=== PATIENT | female | born 1990 ===

== ENCOUNTER 2021-03-04 01:56 | Inpatient (IN) | payer MEDICAID ==
[2021-03-04] MEDS ORDERED: Sodium Chloride 0.9% 10 ML Syringe FLUSH PRN (04:03)
[2021-03-04] MEDS ORDERED: Nalbuphine 10 MG/1 ML Vial IVPUSH PRN (04:03)
[2021-03-04] MEDS ORDERED: Acetaminophen 325 MG Tab PO PRN ×2 (04:14→09:46)
[2021-03-04] MEDS ORDERED: Ondansetron 4 MG/2 ML SDV IVPUSH PRN (04:14)
[2021-03-04] MEDS ORDERED: Lidocaine 1% 50 ML MDV INJECT ONE (04:14)
[2021-03-04] MEDS ORDERED: Calcium Carbonate 500 MG Tab.Chew PO PRN (04:14)
[2021-03-04] MEDS ORDERED: Oxytocin/Lactated Ringers 10 UNIT/1,000 ML BAG IV SCH ×3 (04:15→09:46)
[2021-03-04] MEDS ORDERED: Lactated Ringers 1,000 ML IV SCH (04:15)
[2021-03-04] MEDS ORDERED: Ampicillin 2 GM in Sodium Chloride 0.9% 100 ML IV ONE (04:30)
[2021-03-04] MEDS ORDERED: Ampicillin 2 GM AdvVial IV ONE (04:46)
--- NOTE | 2021-03-04 08:05 | PCM.LDHP ---
L&D History of Present Illness - General Date of Service: 03/04/21 Admit Problem/Dx: Patient Status Order with Admit Dx/Problem 03/04/21 02:05 Patient Status [ADT] Routine 03/04/21 04:09 Patient Status [ADT] Routine Admission Diagnosis/Problem Admission Diagnosis/Problem Vaginal delivery Source of Information: Patient History Limitations: Reports: No Limitations - History of Present Illness Introduction:: Jenna Ching is a 30-year-old G2 now P2-0-0-2 who presented overnight with spontaneous onset of labor. She was having contractions that were about every 5 to 7 minutes and were getting more painful and closer together. She did not have any leaking of fluid or vaginal bleeding. She was having good movement. Timing/Duration: Reports: intermittent (Contractions every 5 to 7 minutes on initial presentation with contractions getting closer and closer together to every 2 minutes), getting worse (For her contraction pain) Quality: Reports: Pressure, Throbbing Severity: Severe Improves with: Reports: None Worsens with: Reports: None Associated Symptoms: Denies: vaginal bleeding, vaginal discharge, vaginal fluid Present Illness Comments:: Jenna Ching is a 30-year-old G2 now P2-0-0-2 female status post normal spontaneous vaginal delivery who had initially presented in active labor. She had intermittent care with 1 visit with myself on 02/26/2021. She had additional care with Dr. Moore at [facility]. Her was overall uncomplicated. She was diagnosed with chlamydia in early in August 2020 with treatment and negative testing on 11/29/2020. She was rubella immune. Her anatomy ultrasound was normal and did not show any abnormalities. Her GBS swab at the end of was positive and she should be treated with antibiotics in labor. Patient did receive 1 dose of antibiotics prior to delivery. Her anatomy ultrasound was normal and did not show any significant abnormalities. There was no evidence of cleft lip on the anatomy ultrasound. Her is complicated by: * GBS positive and was on ampicillin for prophylaxis. Received 1 dose prior to delivery * Rubella nonimmune and should be offered MMR vaccine after delivery * History of first child affected by soft cleft palate. Recommend for evaluation after delivery of the . * History of chlamydia during this with positive swab on 08/30/2020 and was treated at that time. She had negative test of cure on 11/29/2020. 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 G1: 05/20/2013, 39 weeks, , male , 7 pounds 9 ounces, no complications G2: 03/04/2021, 39 weeks 2 days, , male infant, 3750 g (8 pounds 4.3 ounces), moderate to thick meconium and amniotic fluid labs Blood type: O+ Antibody screen: Negative First trimester hematocrit/hemoglobin: 41.5%/12.9 on 08/30/2020 Platelets: 328 on 08/30/2020 Urine culture: Mixed jemma suggestive of contamination Rubella status: Nonimmune Hepatitis B surface antigen: Negative RPR: Negative Hepatitis C: Negative HIV: Negative Gonorrhea: Negative on 08/30/2020 Chlamydia: Positive on 08/30/2020 Anatomy ultrasound: Normal anatomy, no abnormalities, posterior placenta, no previa, 48th percentile on 10/25/2020 Gonorrhea: Negative on 11/29/2020 Chlamydia: Negative on 11/29/2020 3 hour glucose tolerance test: Fasting 105, 1 hour 161, 2-hour 154, 3-hour 57 Second trimester hemoglobin: 12.9 on 12/27/2020 GBS status: Positive on swab on 02/26/2021 - Related Data Allergies/Adverse Reactions: Allergies Allergy/AdvReac Type Severity Reaction Status Date / Time amoxicillin Allergy Cannot Verified 03/04/21 04:37 Remember Home Medications: Home Meds Vits #93/Iron Fum/FA [ Formula Tablet] 1 tab PO DAILY 03/04/21 [History] Past Medical History - Past Health History Medical/Surgical History: Denies Medical/Surgical History 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: : 2 Para: 2 Social & Family History - Family History Family Medical History: No Pertinent Family History - Tobacco Use Tobacco Use Status *Q: Never Tobacco User Second Hand Smoke Exposure: No - Tobacco Core Measures Tobacco Use/Smoking Within Last 30 Days: No Smokeless Tobacco Use in Last 30 Days: No - Alcohol Use Alcohol Use History: No - Recreational Drug Use Recreational Drug Use: No - Living Situation & Occupation Living situation: Reports: Single, with Significant Other, with Family Occupation: Employed H&P Review of Systems - Review of Systems: Review Of Systems: See Below General: Denies: Fever, Chills, Malaise, Weakness, Fatigue HEENT: Denies: Headaches, Post Nasal Drip, Sinus Congestion, Sore Throat, Visual Changes Pulmonary: Denies: Shortness of Breath, Wheezing, Pleuritic Chest Pain, Cough Cardiovascular: Denies: Chest Pain, Palpitations, Dyspnea on Exertion, Orthopnea Gastrointestinal: Denies: Abdominal Pain, Constipation, Diarrhea, Nausea, Vomiting Genitourinary: Denies: Dysuria, Frequency, Burning, Pain, Urgency Musculoskeletal: Reports: Back Pain (and hip pain of ) Skin: Denies: Rash, Lesions Psychiatric: Denies: Depression, Anxiety L&D Exam - Exam Exam: See Below - Vital Signs Vital Signs: Last Vital Signs Temp 36.7 C 03/04/21 02:27 Pulse 102 H 03/04/21 02:27 Resp 15 03/04/21 02:27 BP 122/70 03/04/21 02:27 Pulse Ox 98 03/04/21 02:27 Weight: 125.101 kg - OB Specific Contraction Duration (sec): 60-75 Contraction Frequency (min): 2-4 Contraction Intensity: Strong Movement: Active Heart Tones: Present Heart Tones per Min: 155 (+15 x 15 accelerations, no decelerations prior to delivery) Heart Rate (FHR) Variability: Moderate (6-25 bmp) Presentation: Right Occiput Anterior (PATEL) - Corral Score Corral Score Cervix Position: Anterior Corral Score Consistency: Soft Corral Score Effacement: >80% (100%) Corral Score Dilation: > 5 cm (10 cm) Corral Score Infant's Station: +1, +2 (+1) Corral Score Total: 13 - Exam General: Alert, Oriented, Moderate Distress (with contractions) HEENT: Conjunctiva Clear, EOMI Neck: Supple, Trachea Midline Lungs: Normal Respiratory Effort Cardiovascular: Regular Rate GI/Abdominal Exam: Soft, Non-Tender, No Distention, Other (Gravid). No: Guarding, Rigid, Rebound Genitourinary: Normal external exam Extremities: Normal Inspection, No Pedal Edema Skin: Warm, Dry, Intact Psychiatric: Alert, Normal Affect, Normal Mood - Patient Data Lab Results Last 24 hrs: Laboratory Results - last 24 hr 03/04/21 03/04/21 03/04/21 Range/Units 04:30 04:30 04:30 WBC (3.98-10.04) K/mm3 RBC (3.98-5.22) M/mm3 Hgb (11.2-15.7) gm/dl Hct (34.1-44.9) % MCV (79.4-94.8) fl MCH (25.6-32.2) pg MCHC (32.2-35.5) g/dl RDW Std Deviation (36.4-46.3) fL Plt Count (182-369) K/mm3 MPV (9.4-12.3) fl Neut % (Auto) (34.0-71.1) % Lymph % (Auto) (19.3-51.7) % [place] % (Auto) (4.7-12.5) % Eos % (Auto) (0.7-5.8) Baso % (Auto) (0.1-1.2) % Neut # (Auto) (1.56-6.13) K/mm3 Lymph # (Auto) (1.18-3.74) K/mm3 [place]son # (Auto) (0.24-0.36) K/mm3 Eos # (Auto) (0.04-0.36) K/mm3 Baso # (Auto) (0.01-0.08) K/mm3 Urine Color Yellow (Yellow) Urine Appearance Clear (Clear) Urine pH 6.0 (5.0-8.0) Ur Specific [place] > or = 1.030 (1.005-1.030) Urine Protein 1+ H (Negative) Urine Glucose (UA) Negative (Negative) Urine Ketones Negative (Negative) Urine Occult Blood Trace-intact H (Negative) Urine Nitrite Negative (Negative) Urine Bilirubin 1+ H (Negative) Urine Urobilinogen 0.2 (0.2-1.0) Ur Leukocyte Esterase Negative (Negative) Urine RBC 5-10 H (0-5) /hpf Urine WBC 0-5 (0-5) /hpf Ur Squamous Epith Cells 0-5 (0-5) /hpf Amorphous Sediment Moderate H (NOT SEEN) /hpf Urine Bacteria Few (FEW) /hpf Urine Mucus Many H (FEW) /hpf Urine Opiates Screen Negative (VBHRGJ=660) Ur Buprenorphine Scrn Negative (CUTOFF=10) Ur Oxycodone Screen Negative (FHZ0XX=874) Urine Methadone Screen Negative (KHFFLL=129) Ur Propoxyphene Screen Negative (HDUQOP=927) Ur Barbiturates Screen Negative (KGAKHA=101) Ur Tricyclics Screen Negative (LGGIAH=639) Ur Phencyclidine Scrn Negative (CUTOFF=25) Ur Amphetamine Screen Negative (PUEECU=881) U Methamphetamines Scrn Negative (KCWTXX=678) U Benzodiazepines Scrn Negative (MCRKPK=238) U Cocaine Metab Screen Negative (RFEVAR=738) U Marijuana (THC) Screen Negative (CUTOFF=50) SARS-CoV-2 RNA (TRANG) Negative (NEGATIVE) 03/04/21 Range/Units 04:45 WBC 13.79 H (3.98-10.04) K/mm3 RBC 4.38 (3.98-5.22) M/mm3 Hgb 12.8 (11.2-15.7) gm/dl Hct 38.7 (34.1-44.9) % MCV 88.4 (79.4-94.8) fl MCH 29.2 (25.6-32.2) pg MCHC 33.1 (32.2-35.5) g/dl RDW Std Deviation 43.7 (36.4-46.3) fL Plt Count 391 H (182-369) K/mm3 MPV 9.3 L (9.4-12.3) fl Neut % (Auto) 83.5 H (34.0-71.1) % Lymph % (Auto) 12.3 L (19.3-51.7) % [place] % (Auto) 3.2 L (4.7-12.5) % Eos % (Auto) 0.4 L (0.7-5.8) Baso % (Auto) 0.2 (0.1-1.2) % Neut # (Auto) 11.51 H (1.56-6.13) K/mm3 Lymph # (Auto) 1.70 (1.18-3.74) K/mm3 [place]son # (Auto) 0.44 H (0.24-0.36) K/mm3 Eos # (Auto) 0.05 (0.04-0.36) K/mm3 Baso # (Auto) 0.03 (0.01-0.08) K/mm3 Urine Color (Yellow) Urine Appearance (Clear) Urine pH (5.0-8.0) Ur Specific [place] (1.005-1.030) Urine Protein (Negative) Urine Glucose (UA) (Negative) Urine Ketones (Negative) Urine Occult Blood (Negative) Urine Nitrite (Negative) Urine Bilirubin (Negative) Urine Urobilinogen (0.2-1.0) Ur Leukocyte Esterase (Negative) Urine RBC (0-5) /hpf Urine WBC (0-5) /hpf Ur Squamous Epith Cells (0-5) /hpf Amorphous Sediment (NOT SEEN) /hpf Urine Bacteria (FEW) /hpf Urine Mucus (FEW) /hpf Urine Opiates Screen (DQBIQL=509) Ur Buprenorphine Scrn (CUTOFF=10) Ur Oxycodone Screen (ZYW5VN=426) Urine Methadone Screen (NTLULR=407) Ur Propoxyphene Screen (PEYVEX=762) Ur Barbiturates Screen (PYZLZV=765) Ur Tricyclics Screen (CWRWWB=696) Ur Phencyclidine Scrn (CUTOFF=25) Ur Amphetamine Screen (WRQMWJ=366) U Methamphetamines Scrn (HPWPAG=960) U Benzodiazepines Scrn (XBYQLN=527) U Cocaine Metab Screen (GKCWPP=230) U Marijuana (THC) Screen (CUTOFF=50) SARS-CoV-2 RNA (TRANG) (NEGATIVE) Result Diagrams: 03/04/21 04:45 - Problem List (1) 39 weeks gestation of SNOMED Code(s): 64948701 ICD Code: Z3A.39 - 39 WEEKS GESTATION OF Status: Acute Current Visit: Yes (2) GBS (group B Streptococcus carrier), +RV culture, currently SNOMED Code(s): 1509132898610, 625181708, 9085154079712 ICD Code: O99.820 - STREPTOCOCCUS B CARRIER STATE COMPLICATING Status: Acute Current Visit: Yes (3) Rubella nonimmune status, delivered, current hospitalization SNOMED Code(s): 911602202 ICD Code: O99.892 - OTH DISEASES AND CONDITIONS COMPLICATING CHILDBIRTH; Z28.3 - UNDERIMMUNIZATION STATUS Status: Acute Current Visit: Yes (4) History of chlamydia infection SNOMED Code(s): 517039101 ICD Code: Z86.19 - PERSONAL HISTORY OF OTHER INFECTIOUS AND PARASITIC DISEASES Status: Acute Current Visit: Yes (5) Vaginal delivery SNOMED Code(s): 515579414 ICD Code: O80 - ENCOUNTER FOR FULL-TERM UNCOMPLICATED DELIVERY Status: Acute Current Visit: Yes (6) First degree laceration of perineum during delivery, SNOMED Code(s): 455452595 ICD Code: O70.0 - FIRST DEGREE PERINEAL LACERATION DURING DELIVERY Status: Acute Current Visit: Yes (7) Obesity affecting SNOMED Code(s): 812554635092, 887041914126 ICD Code: O99.210 - OBESITY COMPLICATING , UNSPECIFIED TRIMESTER Status: Acute Current Visit: Yes Problem List Initiated/Reviewed/Updated: Yes Orders Last 24hrs: Active Orders 24 hr Category Date Time Status Patient Status Manage Transfer [TRANSFER] Routine ADT 03/04/21 07:44 Ordered Patient Status [ADT] Routine ADT 03/04/21 04:09 Active Activity as Tolerated [RC] PFP Care 03/04/21 04:05 Active Communication Order [RC] ASDIRECTED Care 03/04/21 04:05 Active Heart Tones [RC] ASDIRECTED Care 03/04/21 04:13 Active Non Stress Test [RC] PER UNIT ROUTINE Care 03/04/21 02:05 Active Notify Provider [RC] PFP Care 03/04/21 04:05 Active Notify Provider [RC] PRN Care 03/04/21 04:05 Active Peripheral IV Care [RC] . DIRECTED Care 03/04/21 04:13 Active Urinary Catheter Assessment [RC] ASDIRECTED Care 03/04/21 04:14 Active Vital Signs [RC] PER UNIT ROUTINE Care 03/04/21 02:05 Active Regular Diet [DIET] Diet 03/04/21 Breakfast Active RAPID PLASMA REAGIN,RPR [CHEM] Routine Lab 03/04/21 04:45 Received Acetaminophen [TylenoL] Med 03/04/21 04:14 Active 650 mg PO Q4H PRN Ampicillin 1 gm Med 03/04/21 08:45 Active Sodium Chloride 0.9% [Normal Saline] 100 ml IV Q4H Calcium Carbonate [Tums] Med 03/04/21 04:14 Active 1,000 mg PO Q2H PRN Lactated Ringers [Ringers, Lactated] 1,000 ml Med 03/04/21 04:15 Active IV ASDIRECTED Nalbuphine [Nubain] Med 03/04/21 04:03 Active 10 mg IVPUSH Q2H PRN Ondansetron [Zofran] Med 03/04/21 04:14 Active 4 mg IVPUSH Q4H PRN Oxytocin/Lactated Ringers [Pitocin in LR 10 Units/1,000 Med 03/04/21 04:15 Active ML] 10 unit in 1,000 ml IV .CONTINUOUS Sodium Chloride 0.9% [Saline Flush] Med 03/04/21 04:03 Active 10 ml FLUSH ASDIRECTED PRN Electronic Heart Tones Ext w TOCO [WOMSER] Ot 03/04/21 04:05 Ordered Routine Electronic Heart Tones Internal [WOMSER] Per Unit Ot 03/04/21 04:05 Ordered Routine Peripheral IV Insertion Adult [OM.PC] Routine Ot 03/04/21 04:05 Ordered Resuscitation Status Routine Resus Stat 03/04/21 02:05 Ordered Medication Orders Acetaminophen (Acetaminophen 325 Mg Tab) 650 mg PO Q4H PRN PRN Reason: Pain (Mild 1-3) and fever Calcium Carbonate/Glycine (Calcium Carbonate 500 Mg Tab.Chew) 1,000 mg PO Q2H PRN PRN Reason: Indigestion Lactated Ringer's (Ringers, Lactated) 1,000 mls @ 100 mls/hr IV ASDIRECTED TRICE Last Admin: 03/04/21 04:51 Dose: 100 mls/hr Documented by: KELLCOL Ampicillin Sodium 1 gm/ Sodium (Chloride) 100 mls @ 200 mls/hr IV Q4H TRICE Oxytocin/Lactated Ringer's (Pitocin In Lr 10 Units/1,000 Ml) 10 unit in 1,000 mls @ 500 mls/hr IV .CONTINUOUS TRICE Nalbuphine HCl (Nalbuphine 10 Mg/1 Ml Vial) 10 mg IVPUSH Q2H PRN PRN Reason: Pain Ondansetron HCl (Ondansetron 4 Mg/2 Ml Sdv) 4 mg IVPUSH Q4H PRN PRN Reason: Nausea/Vomiting Sodium Chloride (Sodium Chloride 0.9% 10 Ml Syringe) 10 ml FLUSH ASDIRECTED PRN PRN Reason: Keep Vein Open Assessment/Plan Comment:: Jenna Ching is a 30-year-old G2 now P2-0-0-2 status post , PPD #0, with complicated by GBS positive status and received 1 dose of antibiotics prior to delivery, moderate to thick meconium staining and fluid prior to delivery, rubella nonimmune status and should be offered MMR vaccine after delivery, obesity in and history of chlamydia in early with negative test of cure during Admit to inpatient following normal spontaneous vaginal delivery Continue Pitocin per unit protocol following delivery of placenta and lactated Ringer's until tolerating regular diet Regular diet Vitals per unit routine Ibuprofen and Tylenol for pain control Assist with breast-feeding as needed Continue to monitor lochia Offer MMR vaccine prior to discharge Anticipate discharge home on day #2 secondary to receiving only 1 dose of antibiotics prior to delivery Paresh Brown MD 8:11 AM 03/04/2021
--- NOTE | 2021-03-04 08:20 | PCM.DEL ---
L & D Note - General Info Date of Service: 03/04/21 Mother's Due Date: 03/09/21 - Delivery Note Labor: Spontaneous Delivery Outcome: Livebirth Infant Delivery Method: Spontaneous Vaginal Delivery-Single Presentation: Right Occiput Anterior (PATEL) Nuchal Cord: None Anesthesia Type: None Amniotic Fluid Description: Meconium Stained (with moderate to thick meconium) Episiotomy Type: None Laceration: 1st Degree (left medial labia, midline and right perineal, hemostatic and not repaired) Placenta: Intact, Spontaneous Cord: 3 Vessels Estimated Blood Loss: 100 Resuscitation Needed: Yes [place]: Suctioned, Bulb Syringe, Stimulated, Warmed, [place] Used, Warmer Used Provider: Harry Godfrey Score 1 min: 5 Score 5 min: 9 Second Stage Interventions: Reports: Pushing Effectively, Pushing, Stirrups/Leg Supports Delivery Comments (Free Text/Narrative):: Stage I: Jenna Ching was admitted for spontaneous labor. On admission her cervix was dilated to 3 cm and continue to have significant contractions over the course of 2 hours with thinning of the cervix. She was GBS positive and was started on ampicillin for GBS prophylaxis. Patient was given test dose of ampicillin and she tolerated this without any significant effect or reaction. Patient reported a history of reaction to amoxicillin as a child but does not remember the reaction that she had. Patient received 1 dose of ampicillin prior to delivery of the infant. Patient continued to have contractions throughout the morning and progressed to complete without augmentation. Patient was found to be complete and had artificial rupture of membranes with return of moderate to thick stained meconium fluid. She began pushing. Stage II: On 03/04/2021 she had a normal vaginal delivery of a live male at 07:06. Apgars of 5 & 9. Weight of 3750 g (8 lbs 4.3 oz). Length of 20.5 inches. There was no nuchal cord. Infant was delivered in PATEL position. The cord was doubly clamped and cut by father the . Infant was placed on mother's abdomen initially and then taken to the warmer for further resuscitation including suctioning of the airways and stomach. Stage III: She had a spontaneous delivery of an intact placenta in Dg presentation. Three vessel cord. She was given pitocin and fundal massage. She had first-degree lacerations of the medial left labia minora, midline of the perineum and right perineal area that were all hemostatic and not repaired. Mom and baby were stable to recovery. EBL of 100 mL. Paresh Brown MD 8:20 AM 03/04/2021 - General Info Date of Service: 03/04/21 - Patient Data Vitals - Most Recent: Last Vital Signs Temp 36.7 C 03/04/21 02:27 Pulse 102 H 03/04/21 02:27 Resp 15 03/04/21 02:27 BP 122/70 03/04/21 02:27 Pulse Ox 98 03/04/21 02:27 Weight - Most Recent: 125.101 kg Lab Results Last 24 Hours: Laboratory Results - last 24 hr 03/04/21 03/04/21 03/04/21 Range/Units 04:30 04:30 04:30 WBC (3.98-10.04) K/mm3 RBC (3.98-5.22) M/mm3 Hgb (11.2-15.7) gm/dl Hct (34.1-44.9) % MCV (79.4-94.8) fl MCH (25.6-32.2) pg MCHC (32.2-35.5) g/dl RDW Std Deviation (36.4-46.3) fL Plt Count (182-369) K/mm3 MPV (9.4-12.3) fl Neut % (Auto) (34.0-71.1) % Lymph % (Auto) (19.3-51.7) % Nance % (Auto) (4.7-12.5) % Eos % (Auto) (0.7-5.8) Baso % (Auto) (0.1-1.2) % Neut # (Auto) (1.56-6.13) K/mm3 Lymph # (Auto) (1.18-3.74) K/mm3 Nance # (Auto) (0.24-0.36) K/mm3 Eos # (Auto) (0.04-0.36) K/mm3 Baso # (Auto) (0.01-0.08) K/mm3 Urine Color Yellow (Yellow) Urine Appearance Clear (Clear) Urine pH 6.0 (5.0-8.0) Ur Specific [place] > or = 1.030 (1.005-1.030) Urine Protein 1+ H (Negative) Urine Glucose (UA) Negative (Negative) Urine Ketones Negative (Negative) Urine Occult Blood Trace-intact H (Negative) Urine Nitrite Negative (Negative) Urine Bilirubin 1+ H (Negative) Urine Urobilinogen 0.2 (0.2-1.0) Ur Leukocyte Esterase Negative (Negative) Urine RBC 5-10 H (0-5) /hpf Urine WBC 0-5 (0-5) /hpf Ur Squamous Epith Cells 0-5 (0-5) /hpf Amorphous Sediment Moderate H (NOT SEEN) /hpf Urine Bacteria Few (FEW) /hpf Urine Mucus Many H (FEW) /hpf Urine Opiates Screen Negative (FXUDXN=949) Ur Buprenorphine Scrn Negative (CUTOFF=10) Ur Oxycodone Screen Negative (AOV4XT=331) Urine Methadone Screen Negative (EXJZKV=092) Ur Propoxyphene Screen Negative (ZPXZKY=787) Ur Barbiturates Screen Negative (WDBZAA=062) Ur Tricyclics Screen Negative (ONWHJH=685) Ur Phencyclidine Scrn Negative (CUTOFF=25) Ur Amphetamine Screen Negative (VMVPAC=716) U Methamphetamines Scrn Negative (NFJPPO=612) U Benzodiazepines Scrn Negative (DHFKXD=881) U Cocaine Metab Screen Negative (NFJETL=326) U Marijuana (THC) Screen Negative (CUTOFF=50) SARS-CoV-2 RNA (TRANG) Negative (NEGATIVE) 03/04/21 Range/Units 04:45 WBC 13.79 H (3.98-10.04) K/mm3 RBC 4.38 (3.98-5.22) M/mm3 Hgb 12.8 (11.2-15.7) gm/dl Hct 38.7 (34.1-44.9) % MCV 88.4 (79.4-94.8) fl MCH 29.2 (25.6-32.2) pg MCHC 33.1 (32.2-35.5) g/dl RDW Std Deviation 43.7 (36.4-46.3) fL Plt Count 391 H (182-369) K/mm3 MPV 9.3 L (9.4-12.3) fl Neut % (Auto) 83.5 H (34.0-71.1) % Lymph % (Auto) 12.3 L (19.3-51.7) % Nance % (Auto) 3.2 L (4.7-12.5) % Eos % (Auto) 0.4 L (0.7-5.8) Baso % (Auto) 0.2 (0.1-1.2) % Neut # (Auto) 11.51 H (1.56-6.13) K/mm3 Lymph # (Auto) 1.70 (1.18-3.74) K/mm3 [place]ance # (Auto) 0.44 H (0.24-0.36) K/mm3 Eos # (Auto) 0.05 (0.04-0.36) K/mm3 Baso # (Auto) 0.03 (0.01-0.08) K/mm3 Urine Color (Yellow) Urine Appearance (Clear) Urine pH (5.0-8.0) Ur Specific [place] (1.005-1.030) Urine Protein (Negative) Urine Glucose (UA) (Negative) Urine Ketones (Negative) Urine Occult Blood (Negative) Urine Nitrite (Negative) Urine Bilirubin (Negative) Urine Urobilinogen (0.2-1.0) Ur Leukocyte Esterase (Negative) Urine RBC (0-5) /hpf Urine WBC (0-5) /hpf Ur Squamous Epith Cells (0-5) /hpf Amorphous Sediment (NOT SEEN) /hpf Urine Bacteria (FEW) /hpf Urine Mucus (FEW) /hpf Urine Opiates Screen (VLIFTC=545) Ur Buprenorphine Scrn (CUTOFF=10) Ur Oxycodone Screen (WSE1DD=592) Urine Methadone Screen (QGZVPM=832) Ur Propoxyphene Screen (GTLQHJ=108) Ur Barbiturates Screen (ZCKWPC=106) Ur Tricyclics Screen (XXCSUV=398) Ur Phencyclidine Scrn (CUTOFF=25) Ur Amphetamine Screen (EIUJGE=554) U Methamphetamines Scrn (LCYVPP=324) U Benzodiazepines Scrn (DSGOKZ=623) U Cocaine Metab Screen (GLDHOZ=981) U Marijuana (THC) Screen (CUTOFF=50) SARS-CoV-2 RNA (TRANG) (NEGATIVE) Med Orders - Current: Current Medications Acetaminophen (Acetaminophen 325 Mg Tab) 650 mg PO Q4H PRN PRN Reason: Pain (Mild 1-3) and fever Calcium Carbonate/Glycine (Calcium Carbonate 500 Mg Tab.Chew) 1,000 mg PO Q2H PRN PRN Reason: Indigestion Lactated Ringer's (Ringers, Lactated) 1,000 mls @ 100 mls/hr IV ASDIRECTED TRICE Last Admin: 03/04/21 04:51 Dose: 100 mls/hr Documented by: Ampicillin Sodium 1 gm/ Sodium (Chloride) 100 mls @ 200 mls/hr IV Q4H TRICE Oxytocin/Lactated Ringer's (Pitocin In Lr 10 Units/1,000 Ml) 10 unit in 1,000 mls @ 500 mls/hr IV .CONTINUOUS TRICE Nalbuphine HCl (Nalbuphine 10 Mg/1 Ml Vial) 10 mg IVPUSH Q2H PRN PRN Reason: Pain Ondansetron HCl (Ondansetron 4 Mg/2 Ml Sdv) 4 mg IVPUSH Q4H PRN PRN Reason: Nausea/Vomiting Sodium Chloride (Sodium Chloride 0.9% 10 Ml Syringe) 10 ml FLUSH ASDIRECTED PRN PRN Reason: Keep Vein Open Discontinued Medications Ampicillin Sodium (Ampicillin 2 Gm Advvial) Confirm Administered Dose 2 gm IV .STK-MED ONE Stop: 03/04/21 04:47 Last Admin: 03/04/21 04:54 Dose: Not Given Documented by: Ampicillin Sodium 2 gm/ Sodium (Chloride) 100 mls @ 200 mls/hr IV ONETIME ONE Stop: 03/04/21 04:59 Last Admin: 03/04/21 04:51 Dose: 200 mls/hr Documented by: Lidocaine HCl (Lidocaine 1% 50 Ml Mdv) 50 ml INJECT ONETIME ONE Stop: 03/04/21 04:15 - Problem List & Annotations (1) 39 weeks gestation of SNOMED Code(s): 23118309 Code(s): Z3A.39 - 39 WEEKS GESTATION OF Status: Acute Current Visit: Yes (2) GBS (group B Streptococcus carrier), +RV culture, currently SNOMED Code(s): 6453058125098, 582868408, 0151906172052 Code(s): O99.820 - STREPTOCOCCUS B CARRIER STATE COMPLICATING Status: Acute Current Visit: Yes (3) Rubella nonimmune status, delivered, current hospitalization SNOMED Code(s): 283303058 Code(s): O99.892 - OTH DISEASES AND CONDITIONS COMPLICATING CHILDBIRTH; Z28.3 - UNDERIMMUNIZATION STATUS Status: Acute Current Visit: Yes (4) History of chlamydia infection SNOMED Code(s): 926352886 Code(s): Z86.19 - PERSONAL HISTORY OF OTHER INFECTIOUS AND PARASITIC DISEASES Status: Acute Current Visit: Yes (5) Vaginal delivery SNOMED Code(s): 701886631 Code(s): O80 - ENCOUNTER FOR FULL-TERM UNCOMPLICATED DELIVERY Status: Acute Current Visit: Yes (6) First degree laceration of perineum during delivery, SNOMED Code(s): 209462820 Code(s): O70.0 - FIRST DEGREE PERINEAL LACERATION DURING DELIVERY Status: Acute Current Visit: Yes (7) Obesity affecting SNOMED Code(s): 837052903864, 264869442236 Code(s): O99.210 - OBESITY COMPLICATING , UNSPECIFIED TRIMESTER Status: Acute Current Visit: Yes - Problem List Review Problem List Initiated/Reviewed/Updated: Yes - My Orders Last 24 Hours: My Active Orders 03/04/21 02:05 Non Stress Test [RC] PER UNIT ROUTINE Vital Signs [RC] PER UNIT ROUTINE Resuscitation Status Routine 03/04/21 04:03 Nalbuphine [Nubain] 10 mg IVPUSH Q2H PRN Sodium Chloride 0.9% [Saline Flush] 10 ml FLUSH ASDIRECTED PRN 03/04/21 04:05 Activity as Tolerated [RC] PFP Communication Order [RC] ASDIRECTED Notify Provider [RC] PFP Notify Provider [RC] PRN Electronic Heart Tones Ext w TOCO [WOMSER] Routine Electronic Heart Tones Internal [WOMSER] Per Unit Routine Peripheral IV Insertion Adult [OM.PC] Routine 03/04/21 04:09 Patient Status [ADT] Routine 03/04/21 04:13 Heart Tones [RC] ASDIRECTED Peripheral IV Care [RC] . DIRECTED 03/04/21 04:14 Urinary Catheter Assessment [RC] ASDIRECTED Acetaminophen [TylenoL] 650 mg PO Q4H PRN Calcium Carbonate [Tums] 1,000 mg PO Q2H PRN Ondansetron [Zofran] 4 mg IVPUSH Q4H PRN 03/04/21 04:15 Lactated Ringers [Ringers, Lactated] 1,000 ml IV ASDIRECTED Oxytocin/Lactated Ringers [Pitocin in LR 10 Units/1,000 ML] 10 unit in 1,000 ml IV .CONTINUOUS 03/04/21 04:45 RAPID PLASMA REAGIN,RPR [CHEM] Routine 03/04/21 Breakfast Regular Diet [DIET] 03/04/21 07:44 Patient Status Manage Transfer [TRANSFER] Routine 03/04/21 08:45 Ampicillin 1 gm Sodium Chloride 0.9% [Normal Saline] 100 ml IV Q4H - Plan Plan:: Jenna Ching is a 30-year-old G2 now P2-0-0-2 status post , PPD #0, with complicated by GBS positive status and received 1 dose of antibiotics prior to delivery, moderate to thick meconium staining and fluid prior to delivery, rubella nonimmune status and should be offered MMR vaccine after delivery, obesity in and history of chlamydia in early with negative test of cure during Admit to inpatient following normal spontaneous vaginal delivery Continue Pitocin per unit protocol following delivery of placenta and lactated Ringer's until tolerating regular diet Regular diet Vitals per unit routine Ibuprofen and Tylenol for pain control Assist with breast-feeding as needed Continue to monitor lochia Offer MMR vaccine prior to discharge Anticipate discharge home on day #2 secondary to receiving only 1 dose of antibiotics prior to delivery Paresh Brown MD 8:20 AM 03/04/2021
[2021-03-04] MEDS ORDERED: Ampicillin 1 GM in Sodium Chloride 0.9% 100 ML IV SCH (08:45)
[2021-03-04] MEDS ORDERED: Hydrocortisone Acetate 25 MG Supp RECTAL PRN (09:46)
[2021-03-04] MEDS ORDERED: Witch Hazel Medicated Pads 40/Jar TOP PRN (09:46)
[2021-03-04] MEDS ORDERED: Magnesium Hydroxide 400 MG/5 ML Susp 30 ML Cup PO PRN (09:46)
[2021-03-04] MEDS ORDERED: Measles, Mumps & Rubella Vaccine 0.5 ML SDV SUBCUT ONE (09:46)
[2021-03-04] MEDS ORDERED: Benzocaine/Menthol 20%-0.5% Spray 56 GM Canister TOP PRN (09:46)
[2021-03-04] MEDS ORDERED: Docusate Sodium 100 MG Cap PO PRN (09:46)
[2021-03-04] MEDS: Ibuprofen 600 MG Tab PO PRN (11:59)
[2021-03-04] MEDS: Prenatal Multivitamin with Calcium/Folic Acid/Iron Tab PO SCH (19:35)
[2021-03-05] MEDS: Prenatal Multivitamin with Calcium/Folic Acid/Iron Tab PO SCH (10:21)
--- NOTE | 2021-03-05 12:01 | PCM.SN.2 ---
- Free Text/Narrative Note: note: Patient is doing well in the period. Minimal lochia, voiding well, ambulated without problems. Nursing without concerns. Baby is in level 2 due to respiratory concerns. Mom will be staying overnight at least 1 more night. Patient is afebrile, vital signs are stable Abdomen is flat, soft, uterus is below the umbilicus and is firm and nontender. Legs are nontender. Assessment: recovery going well. Plan: Routine care. Patient be discharged home within the next 24-48 hours.
[2021-03-05] MEDS: Ibuprofen 600 MG Tab PO PRN (23:13)
[2021-03-06] MEDS: Prenatal Multivitamin with Calcium/Folic Acid/Iron Tab PO SCH (07:40)
[2021-03-06] MEDS ORDERED: Measles, Mumps & Rubella Vaccine 0.5 ML SDV SUBCUT ONE (09:00)
--- NOTE | 2021-03-09 00:04 | PCM.DCSUM1 ---
Discharge Summary - Hospital Course Diagnosis: Stroke: No - Discharge Data Discharge Date: 03/06/21 Discharge Disposition: Home, Self-Care 01 Condition: Good - Referral to Home Health Primary Care Physician: Paresh Brown MD - Patient Summary/Data Hospital Course: Stage I: Jenna Ching was admitted for spontaneous labor. On admission her cervix was dilated to 3 cm and continue to have significant contractions over the course of 2 hours with thinning of the cervix. She was GBS positive and was started on ampicillin for GBS prophylaxis. Patient was given test dose of ampicillin and she tolerated this without any significant effect or reaction. Patient reported a history of reaction to amoxicillin as a child but does not remember the reaction that she had. Patient received 1 dose of ampicillin prior to delivery of the . Patient continued to have contractions throughout the morning and progressed to complete without augmentation. Patient was found to be complete and had artificial rupture of membranes with return of moderate to thick stained meconium fluid. She began pushing. Stage II: On 03/04/2021 she had a normal vaginal delivery of a live male infant at 07:06. Apgars of 5 & 9. Weight of 3750 g (8 lbs 4.3 oz). Length of 20.5 inches. There was no nuchal cord. was delivered in PATEL position. The cord was doubly clamped and cut by father the infant. Infant was placed on mother's abdomen initially and then taken to the warmer for further resuscitation including suctioning of the airways and stomach. Stage III: She had a spontaneous delivery of an intact placenta in Dg presentation. Three vessel cord. She was given pitocin and fundal massage. She had first-degree lacerations of the medial left labia minora, midline of the perineum and right perineal area that were all hemostatic and not repaired. Mom and baby were stable to recovery. EBL of 100 mL. - Patient Instructions Diet: Usual Diet as Tolerated Activity: No Strenuous Activities Driving: May Drive Today Showering/Bathing: May Shower Wound/Incision Care: Keep Operative Site/Wound Site Clean and Dry Notify Provider of: Fever, Increased Pain, Swelling and Redness - Discharge Plan *PRESCRIPTION DRUG MONITORING PROGRAM REVIEWED*: No *COPY OF PRESCRIPTION DRUG MONITORING REPORT IN PATIENT ANISH: No Home Medications: Home Meds Vits #93/Iron Fum/FA [ Formula Tablet] 1 tab PO DAILY 03/04/21 [History] Patient Handouts: Care After Vaginal Delivery Referrals: Faith Quinteros MD [Physician] - - Discharge Summary/Plan Comment DC Time >30 min.: No - General Info Date of Service: 03/09/21 Functional Status: Reports: Pain Controlled - Review of Systems General: Reports: No Symptoms HEENT: Reports: No Symptoms Pulmonary: Reports: No Symptoms Cardiovascular: Reports: No Symptoms Gastrointestinal: Reports: No Symptoms Genitourinary: Reports: No Symptoms Musculoskeletal: Reports: No Symptoms Skin: Reports: No Symptoms Neurological: Reports: No Symptoms Psychiatric: Reports: No Symptoms - Patient Data Vitals - Most Recent: Last Vital Signs Temp 36.3 C 03/06/21 11:42 Pulse 87 03/06/21 11:42 Resp 16 03/06/21 11:42 BP 137/71 03/06/21 11:42 Pulse Ox 99 03/06/21 11:42 Weight - Most Recent: 125.101 kg Med Orders - Current: Current Medications Discontinued Medications Acetaminophen (Acetaminophen 325 Mg Tab) 650 mg PO Q4H PRN PRN Reason: Pain (Mild 1-3) and fever Acetaminophen (Acetaminophen 325 Mg Tab) 650 mg PO Q6H PRN PRN Reason: mild pain or fever Ampicillin Sodium (Ampicillin 2 Gm Advvial) Confirm Administered Dose 2 gm IV .STK-MED ONE Stop: 03/04/21 04:47 Last Admin: 03/04/21 04:54 Dose: Not Given Documented by: Benzocaine/Menthol (Benzocaine/Menthol 20%-0.5% [place] 56 Gm Canister) 0 gm TOP ASDIRECTED PRN PRN Reason: Perineal Comfort Measure Last Admin: 03/04/21 11:58 Dose: 1 spray Documented by: Calcium Carbonate/Glycine (Calcium Carbonate 500 Mg Tab.Chew) 1,000 mg PO Q2H PRN PRN Reason: Indigestion Docusate Sodium (Docusate Sodium 100 Mg Cap) 100 mg PO BID PRN PRN Reason: Constipation Last Admin: 03/06/21 07:40 Dose: 100 mg Documented by: Hydrocortisone Acetate (Hydrocortisone Acetate 25 Mg Supp) 25 mg RECTAL BID PRN PRN Reason: Hemorrhoid pain Lactated Ringer's (Ringers, Lactated) 1,000 mls @ 100 mls/hr IV ASDIRECTED TRICE Last Admin: 03/04/21 04:51 Dose: 100 mls/hr Documented by: Ampicillin Sodium 2 gm/ Sodium (Chloride) 100 mls @ 200 mls/hr IV ONETIME ONE Stop: 03/04/21 04:59 Last Admin: 03/04/21 04:51 Dose: 200 mls/hr Documented by: Ampicillin Sodium 1 gm/ Sodium (Chloride) 100 mls @ 200 mls/hr IV Q4H [facility] Last Admin: 03/05/21 07:31 Dose: Not Given Documented by: Oxytocin/Lactated Ringer's (Pitocin In Lr 10 Units/1,000 Ml) 10 unit in 1,000 mls @ 500 mls/hr IV .CONTINUOUS [facility] Last Admin: 03/04/21 07:10 Dose: 500 mls/hr Documented by: Oxytocin/Lactated Ringer's (Pitocin In Lr 10 Units/1,000 Ml) 10 unit in 1,000 mls @ 100 mls/hr IV TITRATE [facility]; Protocol Ibuprofen (Ibuprofen 600 Mg Tab) 600 mg PO Q6H PRN PRN Reason: Mild pain or fever Last Admin: 03/05/21 23:13 Dose: 600 mg Documented by: Lidocaine HCl (Lidocaine 1% 50 Ml Mdv) 50 ml INJECT ONETIME ONE Stop: 03/04/21 04:15 Last Admin: 03/05/21 07:31 Dose: Not Given Documented by: Magnesium Hydroxide (Magnesium Hydroxide 400 Mg/5 Ml Susp 30 Ml Cup) 30 ml PO BEDTIME PRN PRN Reason: Constipation Measles/Mumps/Rubella Vaccine Live (Measles, Mumps & Rubella Vaccine 0.5 Ml Sdv) 0.5 ml SUBCUT .ONCE ONE Stop: 03/04/21 09:47 Measles/Mumps/Rubella Vaccine Live (Measles, Mumps & Rubella Vaccine 0.5 Ml Sdv) 0.5 ml SUBCUT .ONCE ONE Stop: 03/06/21 09:01 Last Admin: 03/06/21 09:09 Dose: 0.5 ml Documented by: Nalbuphine HCl (Nalbuphine 10 Mg/1 Ml Vial) 10 mg IVPUSH Q2H PRN PRN Reason: Pain Ondansetron HCl (Ondansetron 4 Mg/2 Ml Sdv) 4 mg IVPUSH Q4H PRN PRN Reason: Nausea/Vomiting Prenat Multivit/[place]/Iron/Folic Ac ( Multivitamin With Calcium/Folic Acid/Iron Tab) 1 each PO DAILY TRICE Last Admin: 03/06/21 07:40 Dose: 1 each Documented by: Sodium Chloride (Sodium Chloride 0.9% 10 Ml Syringe) 10 ml FLUSH ASDIRECTED PRN PRN Reason: Keep Vein Open Witch Kellie (Witch Kellie Medicated Pads 40/Jar) 1 pad TOP ASDIRECTED PRN PRN Reason: Perineal Comfort Measure - Exam General: Reports: Alert, Oriented HEENT: Reports: Pupils Equal, Pupils Reactive, EOMI, Mucous Membr. Moist/[place] Neck: Reports: Supple Lungs: Reports: Clear to Auscultation, Normal Respiratory Effort Cardiovascular: Reports: Regular Rate, Regular Rhythm GI/Abdominal Exam: Normal Bowel Sounds, Soft, Non-Tender, No Organomegaly, No Distention, No Abnormal Bruit, No Mass, Pelvis Stable Rectal (Female) Exam: Normal Exam, Normal Rectal Tone Back Exam: Reports: Normal Inspection, Full Range of Motion Extremities: Normal Inspection, Normal Range of Motion, Non-Tender, No Pedal Edema, Normal Capillary Refill Skin: Reports: Warm, Dry, Intact Wound/Incisions: Reports: Healing Well Neurological: Reports: No New Focal Deficit Psy/Mental Status: Reports: Alert, Normal Affect, Normal Mood
== END 2021-03-06 11:58 | disposition home or self-care (01) | DRG 807 ==
LOC: JD.OBCHECK 01:56 → JD.OB 01:56 → JD.OBCHECK 04:08 → JD.OB 04:09 → OBSVTOIN 07:06 → MERGE 07:06 → JD.OB 07:07
PROVIDERS: ADMIT Obstetrics & Gynecology; ATTEND Obstetrics & Gynecology
PROC: 10E0XZZ Delivery of Products of Conception, External Approach (ICD-10-PCS; principal; 2021-03-04)
PROC: 0HQ9XZZ Repair Perineum Skin, External Approach (ICD-10-PCS; 2021-03-04)
PROC: 10907ZC Drainage of Amniotic Fluid, Therapeutic from Products of Conception, Via Natural or Artificial Opening (ICD-10-PCS; 2021-03-04)
DX: O99.824 Streptococcus B carrier state complicating childbirth (principal); Z37.0 Single live birth; Z3A.39 39 weeks gestation of pregnancy; Z88.1 Allergy status to other antibiotic agents; O77.0 Labor and delivery complicated by meconium in amniotic fluid; O70.0 First degree perineal laceration during delivery
CPT/HCPCS: 36415; 59025; 59409; 80306; 81001; 85025; 86592; 90471; 90707; A9270-GY; J0290; J2590; J7120; U0002